=== PATIENT | female | born 1980 | race Caucasian/White ===

== ENCOUNTER 2017-11-04 16:19 | Inpatient (IN) | payer MEDICAID ==
[2017-11-04] MEDS ORDERED: AL HYDROX/MG HYDROX/SIMETH 30 ML CUP PO (19:00)
[2017-11-04] MEDS ORDERED: ONDANSETRON 4 MG INJ IV (19:00)
[2017-11-04] MEDS ORDERED: ACETAMINOPHEN 325 MG TAB PO (19:00)
[2017-11-04] MEDS: LACTATED RINGER'S 1,000 ML IV (19:22)
[2017-11-04] MEDS: MAGNESIUM SULFATE 4 GM/100 ML 100 ML IV (19:30)
[2017-11-04] MEDS: BETAMET NA PHOS/AC(6 MG/ML) 5ML INJ IM (19:43)
[2017-11-04 20:01] LABS: ADD MAN DIFF? NO
[2017-11-04] MEDS: MAGNESIUM SULFATE 20 GM/500 ML 500 ML IV (20:01)
[2017-11-04 20:04] LABS: WHITE BLOOD COUNT 8.6 10^3/ul (4.8-10.8)
[2017-11-04 20:04] LABS: BASOPHILS % 0.2 % (0.0-2.0); EOSINOPHILS # 0.1 10^3/ul (0.0-0.5); EOSINOPHILS % 0.6 % (0.0-7.0); HEMOGLOBIN 10.2 g/dl (12.0-16.0); LYMPHOCYTES # 1.7 10^3/ul (0.8-2.9); LYMPHOCYTES % 19.9 % (15.0-51.0); MEAN CORPUSCULAR HEMOGLOBIN 32.3 pg (29.0-33.0); MEAN CORPUSCULAR VOLUME 94.9 fl (82.0-101.0); MEAN PLATELET VOLUME 9.2 fl (7.4-10.4); MONOCYTE # 0.7 10^3/ul (0.3-0.9); MONOCYTES % 7.6 % (0.0-11.0); NEUTROPHIL # 6.1 10^3/ul (1.6-7.5); NEUTROPHILS % 71.1 % (39.0-77.0); PLATELET COUNT 256 10^3/UL (140-415); RED BLOOD COUNT 3.16 10^6/ul (4.20-5.40); RED CELL DISTRIBUTION WIDTH 12.6 % (11.5-14.5)
[2017-11-04 20:10] LABS: ADD UMIC NO; UR ASCORBIC ACID NEGATIVE (NEGATIVE); UR BILIRUBIN (Dip) NEGATIVE (NEGATIVE); UR BLOOD (Dip) NEGATIVE (NEGATIVE); UR CLARITY CLEAR (CLEAR); UR COLOR STRAW (YELLOW); UR GLUCOSE (Dip) NEGATIVE (NEGATIVE); UR KETONES (Dip) 1+ mg/dL (NEGATIVE); UR LEUKOCYTE ESTERASE (Dip) NEGATIVE Leu/ul (NEGATIVE); UR NITRITE (Dip) NEGATIVE (NEGATIVE); UR SPECIFIC GRAVITY (Dip) 1.006 (1.003-1.030); UR TOTAL PROTEIN (Dip) NEGATIVE (NEGATIVE); UR UROBILINOGEN (Dip) NEGATIVE (NEGATIVE)
[2017-11-04 20:25] LABS: ALANINE AMINOTRANSFERASE 23 IU/L (13-69); ALBUMIN/GLOBULIN RATIO 1.03; ALKALINE PHOSPHATASE 101 IU/L (42-121); ANION GAP 8 (8-16); ASPARTATE AMINO TRANSFERASE 23 IU/L (15-46); BILIRUBIN,INDIRECT 0.3 mg/dl (0-1.1); BILIRUBIN,TOTAL 0.3 mg/dl (0.2-1.3); BLOOD UREA NITROGEN 5 mg/dl (7-20); CALCIUM 8.3 mg/dl (8.4-10.2); CARBON DIOXIDE 21 mmol/L (21-31); CHLORIDE 107 mmol/L (97-110); CREATININE 0.39 mg/dl (0.44-1.00); GLUCOSE 91 mg/dl (70-220); POTASSIUM 3.4 mmol/L (3.5-5.1); SODIUM 133 mmol/L (135-144); TOTAL PROTEIN 5.9 g/dl (6.1-8.1)
[2017-11-05 01:03] LABS: MAGNESIUM 4.5 mg/dl (1.7-2.5)
[2017-11-05] MEDS: LACTATED RINGER'S 1,000 ML IV ×2 (02:20→16:06)
[2017-11-05] MEDS: MAGNESIUM SULFATE 20 GM/500 ML 500 ML IV ×2 (05:57→16:10)
[2017-11-05] MEDS: PRENATAL VITAMIN PO (08:51)
[2017-11-05] MEDS: DOCUSATE SODIUM 100 MG CAP PO (08:51)
[2017-11-05] MEDS: FERROUS SULFATE (EC) 325 MG TAB PO (08:51)
[2017-11-05 10:45] LABS: MAGNESIUM 5.3 mg/dl (1.7-2.5)
[2017-11-05 14:20] LABS: MAGNESIUM 5.3 mg/dl (1.7-2.5)
[2017-11-05 18:59] LABS: MAGNESIUM 5.4 mg/dl (1.7-2.5)
[2017-11-05] MEDS: BETAMET NA PHOS/AC(6 MG/ML) 5ML INJ IM (20:03)
[2017-11-06 01:14] LABS: MAGNESIUM 5.3 mg/dl (1.7-2.5)
[2017-11-06] MEDS: MAGNESIUM SULFATE 20 GM/500 ML 500 ML IV (01:33)
[2017-11-06] MEDS: LACTATED RINGER'S 1,000 ML IV (04:51)
[2017-11-06] MEDS: DOCUSATE SODIUM 100 MG CAP PO (08:46)
[2017-11-06] MEDS: FERROUS SULFATE (EC) 325 MG TAB PO (08:46)
[2017-11-06] MEDS: PRENATAL VITAMIN PO (08:46)
== END 2017-11-06 20:00 | disposition home or self-care (01) | DRG 782 ==
LOC: OBT 16:19 → L-D 16:22 → OBT 18:40 → L-D 18:40 → PP1 21:36
DX: O26.873 Cervical shortening, third trimester (principal); O47.03 False labor before 37 completed weeks of gestation, third trimester; O09.523 Supervision of elderly multigravida, third trimester; Z3A.33 33 weeks gestation of pregnancy
CPT/HCPCS: 36415; 59025; 76815; 76817; 80053; 81003; 83735; 85025; 87086

== ENCOUNTER 2017-11-29 15:50 | Inpatient (IN) | payer MEDICAID ==
[2017-11-29] MEDS: LACTATED RINGER'S 1,000 ML IV* (19:20)
[2017-11-29] MEDS ORDERED: BUTORPHANOL 2 MG INJ IV (20:30)
[2017-11-29] MEDS ORDERED: LIDOCAINE 1% (MPF) 30 ML INJ INJ (20:30)
[2017-11-29] MEDS ORDERED: CARBOPROST 250 MCG INJ IM (20:30)
[2017-11-29] MEDS ORDERED: IBUPROFEN 600 MG TAB PO (20:30)
[2017-11-29 21:08] LABS: ADD MAN DIFF? NO
[2017-11-29 21:12] LABS: BASOPHILS % 0.2 % (0.0-2.0); EOSINOPHILS # 0.1 10^3/ul (0.0-0.5); EOSINOPHILS % 0.9 % (0.0-7.0); HEMATOCRIT 32.7 % (37.0-47.0); HEMOGLOBIN 11.2 g/dl (12.0-16.0); LYMPHOCYTES # 1.6 10^3/ul (0.8-2.9); LYMPHOCYTES % 19.2 % (15.0-51.0); MEAN CORPUSCULAR HEMOGLOBIN 32.2 pg (29.0-33.0); MEAN CORPUSCULAR HGB CONC 34.3 g/dl (32.0-37.0); MEAN PLATELET VOLUME 9.6 fl (7.4-10.4); MONOCYTE # 0.6 10^3/ul (0.3-0.9); MONOCYTES % 7.1 % (0.0-11.0); NEUTROPHIL # 5.8 10^3/ul (1.6-7.5); NEUTROPHILS % 71.6 % (39.0-77.0); PLATELET COUNT 255 10^3/UL (140-415); RED BLOOD COUNT 3.48 10^6/ul (4.20-5.40); RED CELL DISTRIBUTION WIDTH 12.5 % (11.5-14.5)
[2017-11-29 21:12] LABS: WHITE BLOOD COUNT 8.1 10^3/ul (4.8-10.8)
[2017-11-29 21:36] LABS: INR 0.87; PROTIME 11.9 Sec (11.9-14.9); PT RATIO 0.9
[2017-11-29 21:37] LABS: PARTIAL THROMBOPLASTIN TIME 26.9 Sec (25.0-35.0)
[2017-11-30] MEDS: LACTATED RINGER'S 1,000 ML IV* ×4 (03:40→19:47)
[2017-11-30 15:01] LABS: RAPID PLASMA REAGIN NONREACTIVE (NR)
[2017-11-30] MEDS: OXYTOCIN 30 UNITS/LR 500 ML IV (20:47)
[2017-11-30] MEDS ORDERED: OXYTOCIN 30 UNITS/LR 500 ML IV (21:00)
[2017-12-01] MEDS: METHYLERGONOVINE 0.2 MG INJ IM (03:44)
[2017-12-01] MEDS: OXYTOCIN 30 UNITS/LR 500 ML IV ×3 (03:46→09:31)
[2017-12-01] MEDS: MISOPROSTOL 200 MCG TAB PR (03:49)
[2017-12-01] MEDS ORDERED: morphine 10 MG INJ (03:49)
[2017-12-01] MEDS: morphine 10 MG INJ IV (04:00)
[2017-12-01] MEDS ORDERED: LACTATED RINGER'S 1,000 ML IV* (05:42)
[2017-12-01] MEDS ORDERED: CARBOPROST 250 MCG INJ IM (06:00)
[2017-12-01] MEDS ORDERED: OXYTOCIN 30 UNITS/LR 500 ML IV (06:00)
[2017-12-01] MEDS ORDERED: DIBUCAINE 1% 30 GM OINT PR (06:00)
[2017-12-01] MEDS ORDERED: MISOPROSTOL 200 MCG TAB PR (06:00)
[2017-12-01] MEDS ORDERED: ACETAMINOPHEN 325 MG TAB PO (06:00)
[2017-12-01] MEDS ORDERED: METHYLERGONOVINE 0.2 MG INJ IM (06:00)
[2017-12-01] MEDS: BENZOCAINE 20% 56 ML SPRAY TOP (06:23)
[2017-12-01] MEDS: IBUPROFEN 600 MG TAB PO ×4 (06:23→23:28)
[2017-12-01] MEDS: WITCH HAZEL/GLYCERIN PAD PR (06:23)
[2017-12-01] MEDS: SENNA/DOCUSATE NA (8.6MG/50MG) TAB PO ×2 (08:42→21:05)
[2017-12-02] MEDS: HYDROCODONE/APAP (5/325) TAB PO (04:41)
[2017-12-02] MEDS: IBUPROFEN 600 MG TAB PO ×4 (06:08→23:21)
[2017-12-02] MEDS: LANOLIN 7 GM TUBE TOP (07:53)
[2017-12-02 08:34] LABS: ADD MAN DIFF? NO
[2017-12-02 08:41] LABS: BASOPHILS % 0.3 % (0.0-2.0); EOSINOPHILS # 0.1 10^3/ul (0.0-0.5); EOSINOPHILS % 0.9 % (0.0-7.0); HEMATOCRIT 32.7 % (37.0-47.0); LYMPHOCYTES # 1.5 10^3/ul (0.8-2.9); LYMPHOCYTES % 19.6 % (15.0-51.0); MEAN CORPUSCULAR HGB CONC 33.6 g/dl (32.0-37.0); MEAN CORPUSCULAR VOLUME 95.1 fl (82.0-101.0); MEAN PLATELET VOLUME 9.8 fl (7.4-10.4); MONOCYTE # 0.5 10^3/ul (0.3-0.9); NEUTROPHIL # 5.5 10^3/ul (1.6-7.5); NEUTROPHILS % 71.7 % (39.0-77.0); PLATELET COUNT 256 10^3/UL (140-415); RED BLOOD COUNT 3.44 10^6/ul (4.20-5.40); RED CELL DISTRIBUTION WIDTH 12.6 % (11.5-14.5)
[2017-12-02 08:41] LABS: WHITE BLOOD COUNT 7.7 10^3/ul (4.8-10.8)
[2017-12-02] MEDS: SENNA/DOCUSATE NA (8.6MG/50MG) TAB PO ×2 (08:51→20:29)
[2017-12-03] MEDS: IBUPROFEN 600 MG TAB PO ×2 (05:33→12:30)
[2017-12-03] MEDS: HYDROCODONE/APAP (5/325) TAB PO (08:29)
[2017-12-03] MEDS: SENNA/DOCUSATE NA (8.6MG/50MG) TAB PO (08:29)
[2017-12-03] MEDS: DIPHTH/TET/ACEL PERTUSS (ADULT) 0.5 ML VIAL IM* (13:28)
== END 2017-12-03 14:45 | disposition home or self-care (01) | DRG 775 ==
LOC: OBT 15:50 → PP1 12-01 05:40 → L-D 15:51 → OBT 20:30 → L-D 20:30
PROVIDERS: Obstetrics & Gynecology
PROC: 10E0XZZ Delivery of Products of Conception, External Approach (ICD-10-PCS; principal; 2017-12-01)
PROC: 0KQM0ZZ Repair Perineum Muscle, Open Approach (ICD-10-PCS; 2017-12-01)
PROC: 3E033VJ Introduction of Other Hormone into Peripheral Vein, Percutaneous Approach (ICD-10-PCS; 2017-12-01)
DX: O70.1 Second degree perineal laceration during delivery (principal); Z37.0 Single live birth; Z3A.37 37 weeks gestation of pregnancy
CPT/HCPCS: 36415; 59025; 76816; 76818; 85025; 85610; 85730; 86592; 86850; 86900; 86901; 90715; 96360; 96361